=== PATIENT | male | born 1940 | race Caucasian/White ===

== ENCOUNTER 2016-10-08 15:16 | Emergency (ER) | payer MEDICARE ==
[2016-10-08] MEDS ORDERED: Lidocaine 1% 20 ML MDV ONE (15:33)
[2016-10-08] MEDS ORDERED: Doxycycline 100 MG CAP ONE (16:16)
--- NOTE | 2016-10-08 16:26 | ERRECORD ---
[facility] EMERGENCY RECORD HPI LACERATION (16:01 SROB) CHIEF COMPLAINT: Patient presents for evaluation of laceration to thigh, on the right, greater than 8.0 cm in length, through subcutaneous fascia. HISTORIAN: History provided by patient, This 76 yo male cut his right thigh when the chain saw slipped. MECHANISM OF INJURY: Known mechanism, Mechanism of injury: Cut or punctured by, chain saw. LOCATION: Symptoms are localized, most severe to right anterior thigh above the knee. QUALITY: Laceration quality straight, There is a macerated field with multiple parallel cuts andsome devascularized tissue and a few slivers of vascularized tissue, about 10 cm long. SEVERITY: Maximum severity of pain rated as 5/10, Current severity of pain rated as 4/10. TIME COURSE: Sudden onset of symptoms, 30, minutes prior to arrival. ASSOCIATED WITH: No associated symptoms. COMPLICATING FACTORS: No complicating factors. EXACERBATED BY: Patient's condition exacerbated by nothing. RELIEVED BY: Patient's condition relieved by nothing. TETANUS: Tetanus status up to date. ROS (16:04 SROB) CONSTITUTIONAL: Historian denies chills, denies fever. ENT: Historian denies epistaxis, denies otalgia, denies rhinorrhea, denies sore throat. CARDIOVASCULAR: Historian denies chest pain. RESPIRATORY: Historian denies cough, denies shortness of breath. GI: Historian denies nausea, denies vomiting. MUSCULOSKELETAL: Historian denies neck pain. SKIN: Historian denies rash. NEUROLOGIC: Historian denies headache. PAST MEDICAL HISTORY (15:27 BDON) MEDICAL HISTORY: Flu vaccine not up to date, Tetanus immunization up to date, Past medical history includes vascular disease history, deep vein thrombosis. MALE SURGICAL HISTORY: Surgical history of orthopedic surgery, R HIP. PSYCHIATRIC HISTORY: No previous psychiatric history. SOCIAL HISTORY: Patient drinks socially, Patient denies drug use, Patient has no smoking history. KNOWN ALLERGIES Cipro tablet EPINEPHrine: Reaction: Anaphylaxis, - parlaysis No Known Drug Allergies (Unconfirmed) CURRENT MEDICATIONS (15:50 BDON) warfarin: &a-1R&a+25V*p+0X*s8440S*c202B*c15G*c2P*p-0X&a-25V&a+1R Name: Rob Rachel : 1940 M76 MedRec: [id number] AcctNum: [id number] Prepared: Sat Oct 08, 2016 16:34 by Interface Page 1 of 3 pMD [facility] EMERGENCY RECORD TABLET : Strength - 1 mg : ORAL Patient Dose: uk. VITAL SIGNS VITAL SIGNS: BP: 187/103, Pulse: 73, Resp: 18, Temp: 96.3 (Oral), Pain: 0, O2 sat: 96, Time: 10/08/2016 15:21. (15:21 BDON) Pulse: 74, Resp: 18, Pain: 0, Time: 10/08/2016 16:26. (16:26 BDON) PHYSICAL EXAM (16:04 SROB) CONSTITUTIONAL: Vital signs reviewed, Patient alert and oriented to person, place and time. HEAD: Head exam included findings of head atraumatic, normocephalic. EYES: Pupils equally round and reactive to light, Extraocular muscles intact, Conjunctiva normal. ENT: Ear exam normal, external ear normal, no drainage, no bleeding, Nose exam normal, no bleeding from nares. NECK: Neck exam included findings of normal range of motion, Trachea midline, no jugular venous distention. RESPIRATORY CHEST: Respiratory exam included findings of no respiratory distress, Breath sounds clear, No wheezing, No rales, No rhonchi. CARDIOVASCULAR: Cardiovascular exam included findings of heart rate regular rate and rhythm, Heart sounds normal, normal S1, normal S2, no murmurs. SKIN: Skin exam included findings of skin warm, dry. MEDICATION ADMINISTRATION SUMMARY Drug Name: doxycycline hyclate oral, Dose Ordered: 100 mg, Route: Oral, Status: Given, Time: 16:18 10/08/2016, Detailed record available in Medication Service section. PROBLEM LIST No recorded problems DIAGNOSIS (16:13 SROB) FINAL: PRIMARY: laceration to the right leg-complex. PRESCRIPTION (16:12 SROB) doxycycline hyclate oral: CAPSULE : 100 mg : ORAL : Quantity: 1 Unit: cap(s) Route: ORAL Schedule: 2 times a day (after meals) Dispense: 10 Unit: cap(s) May substitute. Refills: No Refills . NOTES: No Refills. DISPOSITION PATIENT: Disposition Type: Discharge, Disposition: *Discharge Home, Disposition Transport: Ambulatory, Condition: Good. (16:13 SROB) &a-1R&a+25V*p+0X*c5167V*c202B*c15G*c2P*p-0X&a-25V&a+1R Name: Rob Rachel : 1940 M76 MedRec: [id number] AcctNum: [id number] Prepared: Guerrero Oct 08, 2016 16:34 by Interface Page 2 of 3 pMD [facility] EMERGENCY RECORD Patient left the department. (16:29 BDON) Cho: BDON=JEFF Mcnulty, Radha SROB=MD Eduardo, [facility] &a-1R&a+25V*p+0X*t3919C*c202B*c15G*c2P*p-0X&a-25V&a+1R Name: Rob Rachel : 1940 M76 MedRec: [id number] AcctNum: [id number] Prepared: Guerrero Oct 08, 2016 16:34 by Interface Page 3 of 3 pMD MTDD
--- NOTE | 2016-10-08 16:30 | PICIS ---
[facility] EMERGENCY RECORD TRIAGE ([facility] Oct 08, 2016 15:25 BDON) TRIAGE NOTES: Left lateral knee, laceration from a chain saw. On warfin....last dose last night. ([facility] Oct 08, 2016 15:25 BDON) PATIENT: NAME: Rob Rachel, AGE: 76, GENDER: male, : Sun 1940, TIME OF GREET: Sat Oct 08, 2016 15:17, PREFERRED LANGUAGE: Belizean, ETHNICITY: Not or , ECODE BILLING MAP: [facility], Zip Code: [address], KG WEIGHT: [phone], PHONE: , , , PERSON ID: [id number], PCP: none. ([facility] Oct 08, 2016 15:25 BDON) COMPLAINT: LEFT LEG LAC/INJURY. ([facility] Oct 08, 2016 15:25 BDON) ADMISSION: URGENCY: 3 Urgent, ADMISSION SOURCE: Home, TRANSPORT: Walk-in, BED: TRIAGE. ([facility] Oct 08, 2016 15:25 BDON) ASSESSMENT: Assessment: Chain saw laceration to left knee, bleeding controlled, Symptoms began 30 min ago. (15:27 BDON) PAIN: No complaint of pain. (15:27 BDON) TREATMENTS IN PROGRESS: Treatments given Prehospital: none. (15:27 BDON) PROVIDERS: TRIAGE NURSE: Radha Mcnulty RN. ([facility] Oct 08, 2016 15:25 BDON) VITAL SIGNS: BP 187/103, Pulse 73, Resp 18, Temp 96.3, (Oral), Pain 0, O2 Sat 96, Time 10/08/2016 15:21. (15:21 BDON) PREVIOUS VISIT ALLERGIES: No Known Drug Allergies. ([facility] Oct 08, 2016 15:25 BDON) No Known Drug Allergies. (15:27 BDON) KNOWN ALLERGIES Cipro tablet EPINEPHrine: Reaction: Anaphylaxis, - parlaysis No Known Drug Allergies (Unconfirmed) CURRENT MEDICATIONS (15:50 BDON) warfarin: TABLET : Strength - 1 mg : ORAL Patient Dose: uk. VITAL SIGNS VITAL SIGNS: BP: 187/103, Pulse: 73, Resp: 18, Temp: 96.3 (Oral), Pain: 0, O2 sat: 96, Time: 10/08/2016 15:21. (15:21 BDON) Pulse: 74, Resp: 18, Pain: 0, Time: 10/08/2016 16:26. (16:26 BDON) NURSING ASSESSMENT: SKIN (15:32 BDON) CONSTITUTIONAL: Patient arrives, via hospital wheelchair, History obtained from patient, Patient appears comfortable, Patient cooperative, Patient alert, Oriented to person, place and time, Skin warm, Skin dry, Skin normal in color. SKIN: Skin assessment findings include skin warm, Skin dry, Skin normal in color, Inspection findings include laceration, bleeding controlled, Inspection findings include signs of &a-1R&a+25V*p+0X*i4176K*c202B*c15G*c2P*p-0X&a-25V&a+1R Name: Rob Rachel : 1940 M76 MedRec: [id number] AcctNum: [id number] Prepared: Sat Oct 08, 2016 16:41 by Interface Page 1 of 5 pMD [facility] EMERGENCY RECORD trauma, to left knee cap. SAFETY: Cart/Stretcher in lowest position, Hospital ID band on, Patient in view of the nursing station. NURSING PROCEDURE: DISCHARGE NOTE (16:26 BDON) DISCHARGE: Patient discharged to home, ambulating without assistance, Summary of Care printed/ provided, Patient requested and was provided an electronic copy of Discharge Instructions, Transition record given to patient, Discharge instructions given to patient, Simple or moderate discharge teaching performed, Prescriptions given and instructions on side effects given, Medication reconciliation form given, Above person(s) verbalized understanding of discharge instructions and follow-up care. VITAL SIGNS: Pulse: 74, Resp: 18, Pain: 0. NURSING PROCEDURE: WOUND CARE PATIENT IDENTIFIER: Patient actively involved in identification process. (15:38 BDON) Patient actively involved in identification process. (16:07 BDON) TIMEOUT: Prior to procedure, correct patient verified by, Correct procedure verified, Correct site verified, Correct equipment utilized, Timeout not performed due to emergent nature of procedure. (15:38 BDON) WOUND CARE: Wound care indicated for wound debridement and cleansing, Wound site: left knee, Cause of wound: chain saw, Local infiltration with, 1% lidocaine without epinephrine, Wound irrigated with normal saline, Wound cleansed with Betadine, Wound repaired with sutures. (15:38 BDON) FOLLOW-UP: After procedure, simple dressing applied, using adaptic dressing, wrapped with 2 inch coban, Notes: bilateral legs cleaned of blood with hybicleans and washed with water. (16:07 BDON) SAFETY: Cart/Stretcher in lowest position, Hospital ID band on, Patient in view of the nursing station. (15:38 BDON) ORDER DETAILS Order Name: chart element #1, Status: Active, Time: 15:38 10/08/2016, User: System, - Ordered for: MD Clark Sam, - Entered by: JEFF Mcnulty Bettye - Sat Oct 08, 2016 15:38, - Quantity: 1, Order Name: chart element #4, Status: Active, Time: 15:38 10/08/2016, User: System, - Ordered for: MD Clark Sam, - Entered by: JEFF Mcnulty, Radha Masters Oct 08, 2016 15:38, - Quantity: 1, Order Name: Miscellaneous Nurse Order(s), Status: Done, Time: 16:13 10/08/2016, User: BDON, - Ordered for: MD Eduardo, Warren, &a-1R&a+25V*p+0X*h1328W*c202B*c15G*c2P*p-0X&a-25V&a+1R Name: Rob Rachel : 1940 M76 MedRec: [id number] AcctNum: [id number] Prepared: Sat Oct 08, 2016 16:41 by Interface Page 2 of 5 pMD [facility] EMERGENCY RECORD - Entered by: MD Clark Sam - Guerrero Oct 08, 2016 16:01, - Quantity: 1. MEDICATION ADMINISTRATION SUMMARY Drug Name: doxycycline hyclate oral, Dose Ordered: 100 mg, Route: Oral, Status: Given, Time: 16:18 10/08/2016, Detailed record available in Medication Service section. MEDICATION SERVICE (16:18 SROB) doxycycline hyclate oral: Order: doxycycline hyclate oral (doxycycline hyclate) - Dose: 100 mg : Oral Schedule: Now Ordered by: Warren Clark MD Entered by: Warren Clark MD Sat Oct 08, 2016 16:12 Documented as given by: Radha Mcnulty RN Sat Oct 08, 2016 16:18 Patient, Medication, Dose, Route and Time verified prior to administration. Site: Medication administered P.O., Correct patient, time, route, dose and medication confirmed prior to administration, Patient advised of actions and side-effects prior to administration, Allergies confirmed and medications reviewed prior to administration. HPI LACERATION (16:01 SROB) CHIEF COMPLAINT: Patient presents for evaluation of laceration to thigh, on the right, greater than 8.0 cm in length, through subcutaneous fascia. HISTORIAN: History provided by patient, This 76 yo male cut his right thigh when the chain saw slipped. MECHANISM OF INJURY: Known mechanism, Mechanism of injury: Cut or punctured by, chain saw. LOCATION: Symptoms are localized, most severe to right anterior thigh above the knee. QUALITY: Laceration quality straight, There is a macerated field with multiple parallel cuts andsome devascularized tissue and a few slivers of vascularized tissue, about 10 cm long. SEVERITY: Maximum severity of pain rated as 5/10, Current severity of pain rated as 4/10. TIME COURSE: Sudden onset of symptoms, 30, minutes prior to arrival. ASSOCIATED WITH: No associated symptoms. COMPLICATING FACTORS: No complicating factors. EXACERBATED BY: Patient's condition exacerbated by nothing. RELIEVED BY: Patient's condition relieved by nothing. TETANUS: Tetanus status up to date. ROS (16:04 SROB) CONSTITUTIONAL: Historian denies chills, denies fever. ENT: Historian denies epistaxis, denies otalgia, denies rhinorrhea, denies sore throat. CARDIOVASCULAR: Historian denies chest pain. &a-1R&a+25V*p+0X*u0898N*c202B*c15G*c2P*p-0X&a-25V&a+1R Name: Rob Rachel : 1940 M76 MedRec: [id number] AcctNum: [id number] Prepared: Sat Oct 08, 2016 16:41 by Interface Page 3 of 5 pMD [facility] EMERGENCY RECORD RESPIRATORY: Historian denies cough, denies shortness of breath. GI: Historian denies nausea, denies vomiting. MUSCULOSKELETAL: Historian denies neck pain. SKIN: Historian denies rash. NEUROLOGIC: Historian denies headache. PAST MEDICAL HISTORY (15:27 BDON) MEDICAL HISTORY: Flu vaccine not up to date, Tetanus immunization up to date, Past medical history includes vascular disease history, deep vein thrombosis. MALE SURGICAL HISTORY: Surgical history of orthopedic surgery, R HIP. PSYCHIATRIC HISTORY: No previous psychiatric history. SOCIAL HISTORY: Patient drinks socially, Patient denies drug use, Patient has no smoking history. PHYSICAL EXAM (16:04 SROB) CONSTITUTIONAL: Vital signs reviewed, Patient alert and oriented to person, place and time. HEAD: Head exam included findings of head atraumatic, normocephalic. EYES: Pupils equally round and reactive to light, Extraocular muscles intact, Conjunctiva normal. ENT: Ear exam normal, external ear normal, no drainage, no bleeding, Nose exam normal, no bleeding from nares. NECK: Neck exam included findings of normal range of motion, Trachea midline, no jugular venous distention. RESPIRATORY CHEST: Respiratory exam included findings of no respiratory distress, Breath sounds clear, No wheezing, No rales, No rhonchi. CARDIOVASCULAR: Cardiovascular exam included findings of heart rate regular rate and rhythm, Heart sounds normal, normal S1, normal S2, no murmurs. SKIN: Skin exam included findings of skin warm, dry. EVENTS TRANSFER: Triage to Emergency Triage. (15:25 BDON) Emergency Triage to Emergency Room -05. (15:26 BDON) Removed from Emergency Emergency Room -05. (16:29 BDON) LACERATION-SINGLE REPAIR (16:06 SROB) TIMEOUT: Side and/or site verified, Patient identification confirmed, Sterile procedures observed. LACERATION REPAIR: Side and/or site verified, Patient identification confirmed, Sterile procedures observed, Verbal consent obtained, Wound contaminated with, dried blood, no bony deformity, no tendon involvement, no joint involvement, Wound not near a neurovascular bundle, No pulse deficit, Capillary refill less than 2 seconds, Distal motor intact, Distal sensation intact, No signs of compartment syndrome, Local infiltration with, 1% LIDOCAINE &a-1R&a+25V*p+0X*x8340X*c202B*c15G*c2P*p-0X&a-25V&a+1R Name: Rob Rachel : 1940 M76 MedRec: [id number] AcctNum: [id number] Prepared: Sat Oct 08, 2016 16:41 by Interface Page 4 of 5 pMD [facility] EMERGENCY RECORD without epinephrine, 16-20mL, Complex repair of laceration, to the leg, 9 cm long bed of 3 parallell lacerations, total length (cm) 9 cm, Skin layer closed, using 3.0, prolene suture, 10 sutures, interrupted, Subcutaneous fascia closed, using 4.0, vicryl suture, 5 sutures, $ of the center ragments which were slivers and devascularized were excised. The sides were undermined to free tissue and subcuticular sutures were placed to approximate the wound edges. Tehn skin sutures were placed after thoroughly irrigating with saline and using betadine to decontaminate., No foreign body present. PROBLEM LIST No recorded problems DIAGNOSIS (16:13 SROB) FINAL: PRIMARY: laceration to the right leg-complex. DISPOSITION PATIENT: Disposition Type: Discharge, Disposition: *Discharge Home, Disposition Transport: Ambulatory, Condition: Good. (16:13 SROB) Patient left the department. (16:29 BDON) INSTRUCTION (16:14 SROB) DISCHARGE: EXTREMITY LACERATION. FOLLOWUP: Follow up with Primary Care Physician in 10-14 days. SPECIAL: Keep clean and dry. Have sutures removed in 12-14 days. PRESCRIPTION (16:12 SROB) doxycycline hyclate oral: CAPSULE : 100 mg : ORAL : Quantity: 1 Unit: cap(s) Route: ORAL Schedule: 2 times a day (after meals) Dispense: 10 Unit: cap(s) May substitute. Refills: No Refills . NOTES: No Refills. IMAGING (16:28 BDON) *DISCHARGE INSTRUCTIONS RECEIPT: Image captured from scanner. *SUPPLY CHARGE SHEET: Image captured from scanner. ADMIN DIGITAL SIGNATURE: MD Eduardo, Warren. (16:15 SROB) JEFF Mcnulty Bettye. (16:28 BDON) Cho: BDON=JEFF Mcnulty Bettye SROB=MD Eduardo, Warren &a-1R&a+25V*p+0X*o3606X*c202B*c15G*c2P*p-0X&a-25V&a+1R Name: Rob Rachel : 1940 M76 MedRec: [id number] AcctNum: [id number] Prepared: Guerrero Oct 08, 2016 16:41 by Interface Page 5 of 5 pMD MTDD
== END 2016-10-08 16:26 | disposition home or self-care (01) ==
LOC: NAV ERS 15:16
DX: S71.111A Laceration without foreign body, right thigh, initial encounter (principal); W29.3XXA Contact with powered garden and outdoor hand tools and machinery, initial encounter; Z79.899 Other long term (current) drug therapy
CPT/HCPCS: 99282; J2001

== ENCOUNTER 2016-10-21 10:51 | Emergency (ER) | payer MEDICARE ==
[2016-10-21] MEDS ORDERED: Bacitracin Zinc 1 Packet ONE (11:01)
== END 2016-10-21 11:39 | disposition home or self-care (01) ==
LOC: NAV ERS 10:51
DX: S71.112D Laceration without foreign body, left thigh, subsequent encounter (principal); Z79.01 Long term (current) use of anticoagulants; Z86.718 Personal history of other venous thrombosis and embolism; W45.8XXD Other foreign body or object entering through skin, subsequent encounter
CPT/HCPCS: 99281